=== PATIENT | female | born 1955 | race Caucasian/White ===

== ENCOUNTER 2018-11-07 18:26 | Emergency (ER) | payer OTHER | END 2018-11-07 21:22 | disposition home or self-care (01) | LOC: E/R 18:26 | DX: N30.00 Acute cystitis without hematuria (principal); I10 Essential (primary) hypertension | CPT/HCPCS: 99283; Z7502 ==

== ENCOUNTER 2019-03-18 08:52 | Emergency (ER) | payer OTHER ==
[2019-03-18] MEDS: predniSONE 20 MG TAB PO (10:25)
== END 2019-03-18 10:28 | disposition home or self-care (01) ==
LOC: FTE 08:52
DX: L03.213 Periorbital cellulitis (principal)
CPT/HCPCS: 99283